=== PATIENT | female | born 1990 | race Caucasian/White ===

== ENCOUNTER 2021-07-05 17:10 | Inpatient (IN) | payer MEDICAID, OTHER ==
[~2021-07-05] VITALS: Ht 175.3 cm; Wt 73.0 kg
[2021-07-05] MEDS ORDERED: SODIUM CHLORIDE 0.9% 3,000 ML IV ONE (18:00)
[2021-07-05] MEDS ORDERED: LACTATED RINGER'S 2,000 ML IV ONE (18:15)
[2021-07-05] MEDS ORDERED: SODIUM CHLORIDE 0.9% 1,000 ML IV ONE (18:15)
[2021-07-05 18:43] LABS: Mean Corpuscular Volume 92.7 fL (80.0-100.0)
[2021-07-05 18:45] LABS: Mean Corpuscular Hemoglobin 25.6 pg (28.0-32.0); Mean Corpuscular Hgb Conc. 27.6 g/dL (32.0-36.0); Red Blood Cells 3.13 10^6/uL (4.0-5.20); Red Cell Distribution Width 19.8 % (11.8-14.3); White Blood Cell 15.3 10^3/uL (4.4-10.8)
[2021-07-05 18:52] LABS: Urine Bacteria FEW /hpf (None Seen); Urine Blood TRACE /uL (Negative); Urine Budding Yeast MODERATE /hpf (None Seen); Urine Hyaline Cast FEW /lpf (0 - 2); Urine Mucus FEW (None Seen); Urine Specific Gravity 1.016 (1.001-1.035); Urine WBC 7 /hpf (0 - 5)
[2021-07-05 18:52] LABS: Basophils % (manual) 0 (0.0-2.0); Blast Cells 0; Eosinophils % (manual) 0 (0-7); Metamyelocytes % 0; Myelocytes % 0; Promyelocytes % 0; Reactive Lymphocytes 0
[2021-07-05 18:58] LABS: Albumin 1.8 g/dL (3.4-5.0); Calcium 8.6 mg/dL (8.5-10.1); Potassium 3.4 mmol/L (3.5-5.1)
[2021-07-05 19:01] LABS: Amphetamine Screen, Urine POSITIVE (NEGATIVE); Barbiturate Scree,Urine NEGATIVE (NEGATIVE); Benzodiazephine Screen, Urine NEGATIVE (NEGATIVE); Cannabinoid Screen, Urine NEGATIVE (NEGATIVE); Cocaine Screen, Urine NEGATIVE (NEGATIVE); Opiate Scree,Urine NEGATIVE (NEGATIVE); Phencyclidine Screen, Urine NEGATIVE (NEGATIVE)
[2021-07-05 19:11] LABS: BUN/Creatinine Ratio 8.4; Bilirubin, Total 0.4 mg/dL (0.2-1.0); Total Protein 7.7 g/dL (6.4-8.2)
[2021-07-05] MEDS ORDERED: cefTRIAXone 1GM/50ML D5W 50 ML IV ONE (19:30)
[2021-07-05 19:48] LABS: Band Neutrophils % (manual) 3; Lymphocytes % (manual) 12 (10.0-50.0); Monocytes % (manual) 3 (0-12)
[2021-07-05] MEDS: POTASSIUM CHL 20MEQ/50ML 50 ML IV SCH ×2 (20:30→22:25)
[2021-07-06] MEDS ORDERED: SODIUM BICARBONATE 50ML VIAL 50 ML in SOD CHL 0.45% 1,000 ML IV ONE ×6
[2021-07-06] MEDS ORDERED: DEXTROSE (50%) 50ML SYRG IV PRN
[2021-07-06] MEDS ORDERED: SODIUM BICARBONATE 8.4 % INJ 50ML VIAL IV ONE
[2021-07-06] MEDS ORDERED: SODIUM BICARBONATE 8.4% INJ 50ML SYRINGE ONE (00:12)
[2021-07-06] MEDS ORDERED: InsuLIN REG 1unit/0.01ml Soln (100units/ml) ONE (00:14)
[2021-07-06] MEDS ORDERED: SODIUM BICARBONATE 50ML VIAL 50 ML in SOD CHL 0.45% 1,000 ML IV SCH ×2 (00:15→00:30)
[2021-07-06] MEDS ORDERED: SODIUM BICARBONATE 50ML VIAL 150 ML in SOD CHL 0.45% 1,000 ML IV ONE ×5 (00:30→00:45)
[2021-07-06] MEDS: ACCU-CHEK COMFORT CURVE STRIP VI SCH ×16 (01:11→23:40)
[2021-07-06] MEDS: SOD CHL 0.9%/ KCL 20MEQ 1,000 ML IV SCH ×4 (01:35→19:10)
[2021-07-06] MEDS ORDERED: InsuLIN R (HUMAN) 100 UNITS in SODIUM CHL 0.9% 99 ML IV SCH ×6 (03:15)
[2021-07-06] MEDS: InsuLIN R (HUMAN) 100 UNITS in SODIUM CHL 0.9% 99 ML IV SCH ×9 (03:23→19:09)
[2021-07-06 04:13] LABS: Calcium 7.6 mg/dL (8.5-10.1); Potassium 4.2 mmol/L (3.5-5.1)
[2021-07-06] MEDS ORDERED: NITROGLYCERIN 0.4 MG SL TAB SL PRN (04:15)
[2021-07-06] MEDS ORDERED: ACETAMINOPHEN 325 MG TAB PO PRN (04:15)
[2021-07-06] MEDS ORDERED: DOCUSATE SOD 100 MG CAP PO PRN (04:15)
[2021-07-06] MEDS ORDERED: ONDANSETRON HCL 4 MG/2 ML VIAL IV PRN (04:15)
[2021-07-06] MEDS ORDERED: ALBUMIN 25% 100 ML IV ONE ×2 (04:15→09:00)
[2021-07-06 04:22] LABS: BUN/Creatinine Ratio 9.9
[2021-07-06] MEDS ORDERED: MORPHINE SULFATE INJECTION 2 MG/ML SYRG IV PRN (06:15)
[2021-07-06] MEDS: INSULIN LANTUS (GLARGINE) 1 /0.01ml (100units/ml) SC SCH ×2 (06:50→22:26)
[2021-07-06 08:14] LABS: Hematocrit 20.3 % (36.0-46.0); Mean Corpuscular Hemoglobin 25.5 pg (28.0-32.0); Mean Corpuscular Hgb Conc. 31.6 g/dL (32.0-36.0); Mean Corpuscular Volume 80.8 fL (80.0-100.0); Red Blood Cells 2.51 10^6/uL (4.0-5.20); Red Cell Distribution Width 18.2 % (11.8-14.3); White Blood Cell 13.1 10^3/uL (4.4-10.8)
[2021-07-06 08:30] LABS: Potassium 3.2 mmol/L (3.5-5.1)
[2021-07-06 08:41] LABS: Albumin 1.4 g/dL (3.4-5.0); BUN/Creatinine Ratio 9.2; Bilirubin, Total 0.3 mg/dL (0.2-1.0); Calcium 7.5 mg/dL (8.5-10.1); Total Protein 6.3 g/dL (6.4-8.2)
[2021-07-06 08:47] LABS: Hemoglobin 6.4 g/dL (12.2-16.2)
[2021-07-06 08:48] LABS: Basophils % (manual) 0 (0.0-2.0); Blast Cells 0; Eosinophils % (manual) 0 (0-7); Metamyelocytes % 0; Myelocytes % 0; Promyelocytes % 0; Reactive Lymphocytes 0
[2021-07-06] MEDS: cefTRIAXone 1GM/50ML D5W 50 ML IV SCH (09:00)
[2021-07-06] MEDS ORDERED: POTASSIUM CHL 20 Meq TABLET PO ONE (10:45)
[2021-07-06] MEDS ORDERED: HEPARIN SODIUM (PORCINE) 5000 UNITS/ML 1ML VIAL ONE ×2 (10:47)
[2021-07-06] MEDS: FUROSEMIDE 40 MG/4 ML VIAL IV SCH (11:35)
[2021-07-06] MEDS: ASPirin 81 mg TAB PO SCH (11:36)
[2021-07-06] MEDS: HEPARIN SODIUM (PORCINE) 5000 UNITS/ML 1ML VIAL SC SCH ×2 (11:36→22:26)
[2021-07-06] MEDS: FAMOTIDINE (10MG/ML) 2ML VL IV SCH ×2 (11:36→22:25)
[2021-07-06] MEDS: D5W/SOD CHL 0.45% 1,000 ML IV SCH ×11 (11:37→19:09)
[2021-07-06 12:21] LABS: Band Neutrophils % (manual) 5; Lymphocytes % (manual) 5 (10.0-50.0); Monocytes % (manual) 4 (0-12)
[2021-07-06] MEDS: MORPHINE SULFATE INJECTION 2 MG/ML SYRG IV PRN ×2 (12:31→18:57)
[2021-07-06 12:43] LABS: Calcium 7.5 mg/dL (8.5-10.1)
[2021-07-06 12:45] LABS: BUN/Creatinine Ratio 9.2
[2021-07-06 14:38] LABS: Potassium 2.9 mmol/L (3.5-5.1)
[2021-07-06] MEDS: POTASSIUM CHL 20MEQ/50ML 50 ML IV SCH ×3 (15:07→17:47)
[2021-07-06] MEDS ORDERED: POTASSIUM CHL 20MEQ/50ML 100 ML IV ONE (15:18)
[2021-07-06 16:33] LABS: Eosinophils # (auto) 0 10 ^3/uL (0-0.8); Lymphocytes % (auto) 8.4 % (10.0-50.0); Neutrophils # (auto) 10.1 10 ^3/uL (1.6-8.6); Nucleated Red Blood Cells % 0.1 %; White Blood Cell 12.2 10^3/uL (4.4-10.8)
[2021-07-06 16:34] LABS: Basophils # (auto) 0 10 ^3/uL (0-0.2); Basophils % (auto) 0.3 % (0.0-2.0); Mean Corpuscular Hemoglobin 26.1 pg (28.0-32.0); Mean Corpuscular Hgb Conc. 32.9 g/dL (32.0-36.0); Mean Corpuscular Volume 79.5 fL (80.0-100.0); Monocytes % (auto) 8.1 % (0.0-12.0); Neutrophils % (auto) 83.2 % (37.0-80.0); Red Blood Cells 2.39 10^6/uL (4.0-5.20)
[2021-07-06 16:38] LABS: Hemoglobin 6.2 g/dL (12.2-16.2)
[2021-07-06 17:32] VITALS: BP 96/56
[2021-07-06 17:49] VITALS: BP 112/69
[2021-07-06 21:15] VITALS: BP 108/66
[2021-07-06 21:30] VITALS: BP 111/66
[2021-07-06] MEDS: HYDROcodone-ACET 5/325MG TAB PO PRN (21:43)
[2021-07-06 22:30] VITALS: BP 111/66
[2021-07-06 23:31] LABS: Calcium 7.6 mg/dL (8.5-10.1); Potassium 3.3 mmol/L (3.5-5.1)
[2021-07-06 23:33] LABS: BUN/Creatinine Ratio 9.4
[2021-07-07] VITALS: BP 102/69
[2021-07-07] MEDS: ACCU-CHEK COMFORT CURVE STRIP VI SCH ×12 (01:20→22:32)
[2021-07-07] MEDS: MORPHINE SULFATE INJECTION 2 MG/ML SYRG IV PRN ×6 (02:03→22:20)
[2021-07-07] MEDS: D5W/SOD CHL 0.45% 1,000 ML IV SCH (02:12)
[2021-07-07 02:46] LABS: BUN/Creatinine Ratio 9.7; Calcium 7.8 mg/dL (8.5-10.1); Potassium 3.2 mmol/L (3.5-5.1)
[2021-07-07] MEDS: SOD CHL 0.9%/ KCL 20MEQ 1,000 ML IV SCH ×3 (02:49→20:46)
[2021-07-07 03:37] LABS: Basophils # (auto) 0.1 10 ^3/uL (0-0.2); Eosinophils # (auto) 0 10 ^3/uL (0-0.8); Monocytes # (auto) 0.7 10 ^3/uL (0-1.3); Red Cell Distribution Width 17.6 % (11.8-14.3)
[2021-07-07 03:40] LABS: Basophils % (auto) 0.8 % (0.0-2.0); Eosinophils % (auto) 0.1 % (0.0-7.0); Hemoglobin 9.1 g/dL (12.2-16.2); Lymphocytes % (auto) 10.1 % (10.0-50.0); Mean Corpuscular Hgb Conc. 33.5 g/dL (32.0-36.0); Mean Corpuscular Volume 80.5 fL (80.0-100.0); Monocytes % (auto) 6.4 % (0.0-12.0); Neutrophils # (auto) 8.5 10 ^3/uL (1.6-8.6); Neutrophils % (auto) 82.6 % (37.0-80.0); Red Blood Cells 3.36 10^6/uL (4.0-5.20); White Blood Cell 10.3 10^3/uL (4.4-10.8)
[2021-07-07] MEDS: InsuLIN R (HUMAN) 100 UNITS in SODIUM CHL 0.9% 99 ML IV SCH (07:35)
[2021-07-07] MEDS: INSULIN LANTUS (GLARGINE) 1 /0.01ml (100units/ml) SC SCH ×2 (08:09→22:33)
[2021-07-07] MEDS: FUROSEMIDE 40 MG/4 ML VIAL IV SCH (11:04)
[2021-07-07] MEDS: FAMOTIDINE (10MG/ML) 2ML VL IV SCH ×2 (11:04→22:32)
[2021-07-07] MEDS: cefTRIAXone 1GM/50ML D5W 50 ML IV SCH (11:04)
[2021-07-07] MEDS: ASPirin 81 mg TAB PO SCH (11:04)
[2021-07-07] MEDS: HEPARIN SODIUM (PORCINE) 5000 UNITS/ML 1ML VIAL SC SCH ×2 (11:04→22:32)
[2021-07-07 11:11] LABS: Basophils # (auto) 0 10 ^3/uL (0-0.2); Basophils % (auto) 0.2 % (0.0-2.0); Eosinophils # (auto) 0 10 ^3/uL (0-0.8); Eosinophils % (auto) 0.2 % (0.0-7.0); Hemoglobin 9.1 g/dL (12.2-16.2); Lymphocytes # (auto) 0.6 10 ^3/uL (0.4-5.4); Lymphocytes % (auto) 6.2 % (10.0-50.0); Monocytes # (auto) 0.6 10 ^3/uL (0-1.3); Red Cell Distribution Width 17.8 % (11.8-14.3)
[2021-07-07 11:15] LABS: Hematocrit 27.1 % (36.0-46.0); Mean Corpuscular Hemoglobin 26.9 pg (28.0-32.0); Mean Corpuscular Hgb Conc. 33.7 g/dL (32.0-36.0); Mean Corpuscular Volume 79.7 fL (80.0-100.0); Monocytes % (auto) 6.1 % (0.0-12.0); Neutrophils # (auto) 8.2 10 ^3/uL (1.6-8.6); Neutrophils % (auto) 87.3 % (37.0-80.0); White Blood Cell 9.4 10^3/uL (4.4-10.8)
[2021-07-07 11:18] LABS: INR 1.03 (0.9-1.15); Partial Thromboplastin Time 26.2 sec (23.6-33.0)
[2021-07-07 11:27] LABS: Albumin 1.7 g/dL (3.4-5.0); BUN/Creatinine Ratio 10.2; Calcium 7.8 mg/dL (8.5-10.1); Potassium 3.2 mmol/L (3.5-5.1)
[2021-07-07 11:30] LABS: Bilirubin, Total 0.3 mg/dL (0.2-1.0); Total Protein 6.2 g/dL (6.4-8.2)
[2021-07-07] MEDS ORDERED: DEXTROSE (50%) 50ML SYRG IV PRN (11:45)
[2021-07-07] MEDS: InsuLIN REG 1unit/0.01ml Soln (100units/ml) SC SCH ×3 (14:05→22:34)
[2021-07-07 16:44] LABS: Calcium 7.8 mg/dL (8.5-10.1)
[2021-07-07 16:46] LABS: BUN/Creatinine Ratio 9.7
[2021-07-07 16:53] LABS: Potassium 2.7 mmol/L (3.5-5.1)
[2021-07-07 17:56] VITALS: BP 101/55
[2021-07-07 18:34] VITALS: BP 101/55
[2021-07-07] MEDS ORDERED: INSLISPI SC (18:48)
[2021-07-07] MEDS ORDERED: TRAZ100T3 PO (18:48)
[2021-07-07] MEDS ORDERED: AMIT25TA12 PO (18:48)
[2021-07-07] MEDS ORDERED: INSLANTI SC (18:48)
[2021-07-07 20:00] VITALS: BP 110/62
[2021-07-07 20:01] LABS: BUN/Creatinine Ratio 9.5; Calcium 7.5 mg/dL (8.5-10.1)
[2021-07-07 20:08] LABS: Potassium 2.7 mmol/L (3.5-5.1)
[2021-07-07] MEDS: POTASSIUM CHL 20MEQ/50ML 50 ML IV SCH ×2 (21:09→22:07)
[2021-07-08] MEDS: ACCU-CHEK COMFORT CURVE STRIP VI SCH ×6 (00:03→20:34)
[2021-07-08] MEDS: InsuLIN REG 1unit/0.01ml Soln (100units/ml) SC SCH ×6 (00:07→20:34)
[2021-07-08 01:45] LABS: BUN/Creatinine Ratio 11.3; Calcium 7.5 mg/dL (8.5-10.1); Potassium 3.4 mmol/L (3.5-5.1)
[2021-07-08] MEDS: POTASSIUM CHL 20MEQ/50ML 50 ML IV SCH (01:50)
[2021-07-08] MEDS: MORPHINE SULFATE INJECTION 2 MG/ML SYRG IV PRN ×5 (03:20→21:33)
[2021-07-08] MEDS: SOD CHL 0.9%/ KCL 20MEQ 1,000 ML IV SCH ×3 (03:35→21:34)
[2021-07-08] MEDS: INSULIN LANTUS (GLARGINE) 1 /0.01ml (100units/ml) SC SCH ×2 (06:53→21:32)
[2021-07-08 07:22] LABS: Basophils # (auto) 0.1 10 ^3/uL (0-0.2); Basophils % (auto) 0.5 % (0.0-2.0); Eosinophils # (auto) 0 10 ^3/uL (0-0.8); Hemoglobin 11.1 g/dL (12.2-16.2); White Blood Cell 11.4 10^3/uL (4.4-10.8)
[2021-07-08 07:25] LABS: Eosinophils % (auto) 0.3 % (0.0-7.0); Hematocrit 32.7 % (36.0-46.0); Lymphocytes # (auto) 1.1 10 ^3/uL (0.4-5.4); Lymphocytes % (auto) 9.3 % (10.0-50.0); Mean Corpuscular Hemoglobin 26.9 pg (28.0-32.0); Mean Corpuscular Hgb Conc. 33.8 g/dL (32.0-36.0); Mean Corpuscular Volume 79.4 fL (80.0-100.0); Monocytes # (auto) 0.6 10 ^3/uL (0-1.3); Monocytes % (auto) 5.1 % (0.0-12.0); Neutrophils # (auto) 9.7 10 ^3/uL (1.6-8.6); Neutrophils % (auto) 84.8 % (37.0-80.0); Nucleated Red Blood Cells % 0.1 %; Red Blood Cells 4.12 10^6/uL (4.0-5.20)
[2021-07-08 07:38] LABS: Potassium 3.5 mmol/L (3.5-5.1)
[2021-07-08 07:45] LABS: BUN/Creatinine Ratio 12.3
[2021-07-08] MEDS: ASPirin 81 mg TAB PO SCH (08:50)
[2021-07-08] MEDS: FUROSEMIDE 40 MG/4 ML VIAL IV SCH (08:51)
[2021-07-08] MEDS: FAMOTIDINE (10MG/ML) 2ML VL IV SCH ×2 (08:51→21:31)
[2021-07-08 09:00] VITALS: BP 112/82
[2021-07-08] MEDS: HEPARIN SODIUM (PORCINE) 5000 UNITS/ML 1ML VIAL SC SCH ×2 (09:02→21:31)
[2021-07-08] MEDS: cefTRIAXone 1GM/50ML D5W 50 ML IV SCH (09:04)
[2021-07-08 11:03] LABS: BUN/Creatinine Ratio 11.5; Calcium 7.9 mg/dL (8.5-10.1); Potassium 3.4 mmol/L (3.5-5.1)
[2021-07-08] MEDS: HYDROcodone-ACET 5/325MG TAB PO PRN (11:56)
[2021-07-08] MEDS ORDERED: VANCOMYCIN PER PHARMACY 0 MG IV SCH (12:30)
[2021-07-08 13:00] VITALS: BP 112/83
[2021-07-08] MEDS: VANCOMYCIN 1GM/250ML 250 ML IV SCH (14:33)
[2021-07-08 14:54] LABS: BUN/Creatinine Ratio 13.5; Calcium 7.9 mg/dL (8.5-10.1)
[2021-07-08 17:00] VITALS: BP 105/71
[2021-07-08 20:00] VITALS: BP 104/70
[2021-07-08 20:20] LABS: BUN/Creatinine Ratio 14.2; Calcium 7.7 mg/dL (8.5-10.1); Potassium 3.2 mmol/L (3.5-5.1)
[2021-07-08] MEDS: FOLIC ACID 1 MG TAB PO SCH (21:38)
[2021-07-08] MEDS: THIAMINE HCL 100 MG TAB PO SCH (21:39)
[2021-07-08 22:13] VITALS: BP 104/70
[2021-07-08 23:00] LABS: BUN/Creatinine Ratio 14.7; Calcium 7.8 mg/dL (8.5-10.1); Potassium 3.5 mmol/L (3.5-5.1)
[2021-07-09] MEDS: ACCU-CHEK COMFORT CURVE STRIP VI SCH ×7 (00:39→23:49)
[2021-07-09] MEDS: VANCOMYCIN 1GM/250ML 250 ML IV SCH ×2 (02:04→14:27)
[2021-07-09] MEDS: MORPHINE SULFATE INJECTION 2 MG/ML SYRG IV PRN ×4 (02:05→20:38)
[2021-07-09 03:00] LABS: BUN/Creatinine Ratio 17.2; Calcium 7.8 mg/dL (8.5-10.1); Potassium 3.6 mmol/L (3.5-5.1)
[2021-07-09] MEDS: InsuLIN REG 1unit/0.01ml Soln (100units/ml) SC SCH ×6 (04:00→19:51)
[2021-07-09 05:15] VITALS: BP 100/63
[2021-07-09] MEDS: SOD CHL 0.9%/ KCL 20MEQ 1,000 ML IV SCH ×3 (06:39→17:39)
[2021-07-09] MEDS: INSULIN LANTUS (GLARGINE) 1 /0.01ml (100units/ml) SC SCH ×2 (06:43→21:08)
[2021-07-09] MEDS ORDERED: fentaNYL CITRATE 100 MCG/2 ML VL IV ONE (08:30)
[2021-07-09] MEDS ORDERED: MIDAZOLAM HCL 2MG/2ML 2ml VIAL (1mg/ml) IV ONE (08:30)
[2021-07-09] MEDS ORDERED: LIDOCAINE 2%HCL (LOCAL ANESTH.) INJ 20ML MDV ONE (08:59)
[2021-07-09 09:00] VITALS: BP 106/65
[2021-07-09 09:12] LABS: Basophils # (auto) 0 10 ^3/uL (0-0.2); Basophils % (auto) 0.5 % (0.0-2.0); Eosinophils # (auto) 0 10 ^3/uL (0-0.8); Lymphocytes # (auto) 1.1 10 ^3/uL (0.4-5.4); Lymphocytes % (auto) 16.2 % (10.0-50.0); Mean Corpuscular Volume 79.8 fL (80.0-100.0); Monocytes # (auto) 0.4 10 ^3/uL (0-1.3); Neutrophils # (auto) 5.5 10 ^3/uL (1.6-8.6)
[2021-07-09 09:17] LABS: Eosinophils % (auto) 0.6 % (0.0-7.0); Hematocrit 27.9 % (36.0-46.0); Hemoglobin 9.4 g/dL (12.2-16.2); Mean Corpuscular Hemoglobin 26.9 pg (28.0-32.0); Mean Corpuscular Hgb Conc. 33.7 g/dL (32.0-36.0); Monocytes % (auto) 5.3 % (0.0-12.0); Neutrophils % (auto) 77.4 % (37.0-80.0); Nucleated Red Blood Cells % 0.2 %; Red Blood Cells 3.49 10^6/uL (4.0-5.20); Red Cell Distribution Width 18.1 % (11.8-14.3); White Blood Cell 7.1 10^3/uL (4.4-10.8)
[2021-07-09] MEDS: THIAMINE HCL 100 MG TAB PO SCH (09:17)
[2021-07-09] MEDS: cefTRIAXone 1GM/50ML D5W 50 ML IV SCH (09:17)
[2021-07-09] MEDS: FOLIC ACID 1 MG TAB PO SCH (09:18)
[2021-07-09] MEDS: ASPirin 81 mg TAB PO SCH (09:18)
[2021-07-09] MEDS: HEPARIN SODIUM (PORCINE) 5000 UNITS/ML 1ML VIAL SC SCH ×2 (09:18→21:11)
[2021-07-09] MEDS: FAMOTIDINE (10MG/ML) 2ML VL IV SCH ×2 (09:18→21:07)
[2021-07-09 09:29] LABS: BUN/Creatinine Ratio 17.8; Calcium 7.7 mg/dL (8.5-10.1); Potassium 3.7 mmol/L (3.5-5.1)
[2021-07-09 09:33] LABS: % Iron Saturation 11.3 % (15-50)
[2021-07-09 10:58] LABS: Folate (Folic Acid) 7.13 ng/mL (5.38-24)
[2021-07-09 12:45] VITALS: BP 112/77
[2021-07-09 16:18] LABS: BUN/Creatinine Ratio 17.7; Calcium 8.3 mg/dL (8.5-10.1); Potassium 3.6 mmol/L (3.5-5.1)
[2021-07-09 17:00] VITALS: BP 133/92
[2021-07-09] MEDS: HYDROcodone-ACET 5/325MG TAB PO PRN ×2 (17:59→22:30)
[2021-07-09 20:18] LABS: BUN/Creatinine Ratio 12.7; Calcium 8.2 mg/dL (8.5-10.1); Potassium 3.6 mmol/L (3.5-5.1)
[2021-07-09 21:30] VITALS: BP 101/68
[2021-07-09 23:47] LABS: Calcium 7.6 mg/dL (8.5-10.1); Potassium 3.7 mmol/L (3.5-5.1)
[2021-07-09 23:50] LABS: BUN/Creatinine Ratio 17.6
[2021-07-10] MEDS: InsuLIN REG 1unit/0.01ml Soln (100units/ml) SC SCH ×7 (00:09→23:49)
[2021-07-10] MEDS: MORPHINE SULFATE INJECTION 2 MG/ML SYRG IV PRN ×4 (01:00→20:04)
[2021-07-10] MEDS: VANCOMYCIN 1GM/250ML 250 ML IV SCH ×2 (01:48→14:00)
[2021-07-10] MEDS: ACCU-CHEK COMFORT CURVE STRIP VI SCH ×6 (04:17→23:38)
[2021-07-10] MEDS: SOD CHL 0.9%/ KCL 20MEQ 1,000 ML IV SCH (04:59)
[2021-07-10 05:00] VITALS: BP 90/60
[2021-07-10 05:29] LABS: Calcium 8.2 mg/dL (8.5-10.1); Potassium 3.7 mmol/L (3.5-5.1)
[2021-07-10] MEDS: INSULIN LANTUS (GLARGINE) 1 /0.01ml (100units/ml) SC SCH ×2 (06:45→21:44)
[2021-07-10] MEDS: FAMOTIDINE (10MG/ML) 2ML VL IV SCH ×2 (08:38→21:40)
[2021-07-10] MEDS: cefTRIAXone 1GM/50ML D5W 50 ML IV SCH (08:38)
[2021-07-10] MEDS: THIAMINE HCL 100 MG TAB PO SCH (08:38)
[2021-07-10] MEDS: ASPirin 81 mg TAB PO SCH (08:38)
[2021-07-10] MEDS: FOLIC ACID 1 MG TAB PO SCH (08:38)
[2021-07-10] MEDS: HEPARIN SODIUM (PORCINE) 5000 UNITS/ML 1ML VIAL SC SCH ×2 (08:45→21:43)
[2021-07-10 08:49] VITALS: BP 103/70
[2021-07-10] MEDS: HYDROcodone-ACET 5/325MG TAB PO PRN ×2 (11:00→16:28)
[2021-07-10 13:00] VITALS: BP 109/65
[2021-07-10 17:27] VITALS: BP 111/71
[2021-07-10 22:00] VITALS: BP 107/77
[2021-07-11] MEDS: VANCOMYCIN 1GM/250ML 250 ML IV SCH ×2 (01:59→13:40)
[2021-07-11] MEDS: MORPHINE SULFATE INJECTION 2 MG/ML SYRG IV PRN ×4 (01:59→20:20)
[2021-07-11] MEDS: ACCU-CHEK COMFORT CURVE STRIP VI SCH ×6 (04:03→23:08)
[2021-07-11] MEDS: InsuLIN REG 1unit/0.01ml Soln (100units/ml) SC SCH ×6 (04:09→23:08)
[2021-07-11 05:00] VITALS: BP 113/69
[2021-07-11 06:22] LABS: Basophils # (auto) 0 10 ^3/uL (0-0.2); Basophils % (auto) 0.6 % (0.0-2.0); Eosinophils # (auto) 0.1 10 ^3/uL (0-0.8); Hematocrit 26.1 % (36.0-46.0); Lymphocytes # (auto) 1.3 10 ^3/uL (0.4-5.4); Monocytes # (auto) 0.5 10 ^3/uL (0-1.3); Neutrophils # (auto) 5.3 10 ^3/uL (1.6-8.6); Red Blood Cells 3.22 10^6/uL (4.0-5.20); White Blood Cell 7.3 10^3/uL (4.4-10.8)
[2021-07-11 06:27] LABS: Eosinophils % (auto) 1.6 % (0.0-7.0); Hemoglobin 8.4 g/dL (12.2-16.2); Lymphocytes % (auto) 17.4 % (10.0-50.0); Mean Corpuscular Hemoglobin 26.2 pg (28.0-32.0); Mean Corpuscular Hgb Conc. 32.3 g/dL (32.0-36.0); Mean Corpuscular Volume 81.2 fL (80.0-100.0); Monocytes % (auto) 7.1 % (0.0-12.0); Neutrophils % (auto) 73.3 % (37.0-80.0); Red Cell Distribution Width 18.5 % (11.8-14.3)
[2021-07-11] MEDS: INSULIN LANTUS (GLARGINE) 1 /0.01ml (100units/ml) SC SCH ×2 (06:45→23:07)
[2021-07-11 07:06] LABS: Potassium 3.8 mmol/L (3.5-5.1)
[2021-07-11 07:13] LABS: BUN/Creatinine Ratio 20.8; Calcium 8.1 mg/dL (8.5-10.1)
[2021-07-11] MEDS: FAMOTIDINE (10MG/ML) 2ML VL IV SCH ×2 (08:32→23:06)
[2021-07-11] MEDS: THIAMINE HCL 100 MG TAB PO SCH (08:32)
[2021-07-11] MEDS: HEPARIN SODIUM (PORCINE) 5000 UNITS/ML 1ML VIAL SC SCH ×2 (08:32→23:07)
[2021-07-11] MEDS: ASPirin 81 mg TAB PO SCH (08:32)
[2021-07-11] MEDS: FOLIC ACID 1 MG TAB PO SCH (08:32)
[2021-07-11] MEDS: cefTRIAXone 1GM/50ML D5W 50 ML IV SCH (08:32)
[2021-07-11 08:36] VITALS: BP 116/72
[2021-07-11] MEDS: HYDROcodone-ACET 5/325MG TAB PO PRN ×2 (10:03→16:37)
[2021-07-11 17:00] VITALS: BP 113/66
[2021-07-11 22:00] VITALS: BP 106/64
[2021-07-12] MEDS: MORPHINE SULFATE INJECTION 2 MG/ML SYRG IV PRN ×6 (01:05→22:32)
[2021-07-12] MEDS: VANCOMYCIN 1GM/250ML 250 ML IV SCH ×2 (02:07→13:39)
[2021-07-12 05:00] VITALS: BP 127/80
[2021-07-12] MEDS: ACCU-CHEK COMFORT CURVE STRIP VI SCH ×6 (05:00→23:50)
[2021-07-12] MEDS: InsuLIN REG 1unit/0.01ml Soln (100units/ml) SC SCH ×6 (05:03→23:52)
[2021-07-12 05:52] LABS: Eosinophils # (auto) 0.1 10 ^3/uL (0-0.8); Lymphocytes # (auto) 1.2 10 ^3/uL (0.4-5.4); Monocytes # (auto) 0.5 10 ^3/uL (0-1.3); Red Blood Cells 3.15 10^6/uL (4.0-5.20)
[2021-07-12 05:56] LABS: Basophils # (auto) 0 10 ^3/uL (0-0.2); Basophils % (auto) 0.3 % (0.0-2.0); Eosinophils % (auto) 1.6 % (0.0-7.0); Hematocrit 25.4 % (36.0-46.0); Hemoglobin 8.3 g/dL (12.2-16.2); Lymphocytes % (auto) 19.3 % (10.0-50.0); Mean Corpuscular Hemoglobin 26.4 pg (28.0-32.0); Mean Corpuscular Hgb Conc. 32.7 g/dL (32.0-36.0); Mean Corpuscular Volume 80.6 fL (80.0-100.0); Monocytes % (auto) 8.5 % (0.0-12.0); Neutrophils # (auto) 4.3 10 ^3/uL (1.6-8.6); Neutrophils % (auto) 70.3 % (37.0-80.0); Nucleated Red Blood Cells % 0.1 %; White Blood Cell 6.2 10^3/uL (4.4-10.8)
[2021-07-12 06:08] LABS: BUN/Creatinine Ratio 17.7; Calcium 8.4 mg/dL (8.5-10.1); Potassium 4.1 mmol/L (3.5-5.1)
[2021-07-12] MEDS: INSULIN LANTUS (GLARGINE) 1 /0.01ml (100units/ml) SC SCH ×2 (06:57→22:48)
[2021-07-12 08:00] VITALS: BP 112/82
[2021-07-12 09:00] VITALS: BP 127/80
[2021-07-12] MEDS: cefTRIAXone 1GM/50ML D5W 50 ML IV SCH (09:03)
[2021-07-12] MEDS: THIAMINE HCL 100 MG TAB PO SCH (10:00)
[2021-07-12] MEDS: HEPARIN SODIUM (PORCINE) 5000 UNITS/ML 1ML VIAL SC SCH ×2 (10:00→22:34)
[2021-07-12] MEDS: FAMOTIDINE (10MG/ML) 2ML VL IV SCH ×2 (10:33→22:32)
[2021-07-12] MEDS: FOLIC ACID 1 MG TAB PO SCH (10:34)
[2021-07-12] MEDS: ASPirin 81 mg TAB PO SCH (10:34)
[2021-07-12 13:00] VITALS: BP 116/73
[2021-07-12 17:00] VITALS: BP 114/75
[2021-07-12] MEDS: HYDROcodone-ACET 5/325MG TAB PO PRN ×2 (18:57→23:50)
[2021-07-12 22:00] VITALS: BP 110/70
[2021-07-13] MEDS: VANCOMYCIN 1GM/250ML 250 ML IV SCH ×2 (02:01→13:59)
[2021-07-13] MEDS: MORPHINE SULFATE INJECTION 2 MG/ML SYRG IV PRN ×4 (03:09→20:07)
[2021-07-13] MEDS: InsuLIN REG 1unit/0.01ml Soln (100units/ml) SC SCH ×5 (03:23→20:19)
[2021-07-13] MEDS: ACCU-CHEK COMFORT CURVE STRIP VI SCH ×6 (03:24→20:15)
[2021-07-13] MEDS: HYDROcodone-ACET 5/325MG TAB PO PRN (04:46)
[2021-07-13 05:00] VITALS: BP 105/62
[2021-07-13 05:54] LABS: Basophils # (auto) 0 10 ^3/uL (0-0.2); Eosinophils # (auto) 0.2 10 ^3/uL (0-0.8); Hemoglobin 8.3 g/dL (12.2-16.2); Monocytes # (auto) 0.6 10 ^3/uL (0-1.3); Neutrophils # (auto) 3.3 10 ^3/uL (1.6-8.6); Nucleated Red Blood Cells % 0.1 %
[2021-07-13 05:57] LABS: Basophils % (auto) 0.6 % (0.0-2.0); Eosinophils % (auto) 2.7 % (0.0-7.0); Hematocrit 25.1 % (36.0-46.0); Lymphocytes # (auto) 1.4 10 ^3/uL (0.4-5.4); Lymphocytes % (auto) 26.4 % (10.0-50.0); Mean Corpuscular Hemoglobin 26.5 pg (28.0-32.0); Mean Corpuscular Volume 80.4 fL (80.0-100.0); Monocytes % (auto) 10.1 % (0.0-12.0); Neutrophils % (auto) 60.2 % (37.0-80.0); Red Blood Cells 3.12 10^6/uL (4.0-5.20); Red Cell Distribution Width 17.9 % (11.8-14.3); White Blood Cell 5.5 10^3/uL (4.4-10.8)
[2021-07-13 06:03] LABS: BUN/Creatinine Ratio 21.9; Calcium 8.8 mg/dL (8.5-10.1); Potassium 3.9 mmol/L (3.5-5.1)
[2021-07-13] MEDS: INSULIN LANTUS (GLARGINE) 1 /0.01ml (100units/ml) SC SCH ×2 (06:35→22:20)
[2021-07-13 09:00] VITALS: BP 104/62
[2021-07-13] MEDS ORDERED: HEPARIN SODIUM (PORCINE) 5000 UNITS/ML 1ML VIAL ONE (09:09)
[2021-07-13] MEDS: cefTRIAXone 1GM/50ML D5W 50 ML IV SCH (09:34)
[2021-07-13] MEDS: FAMOTIDINE (10MG/ML) 2ML VL IV SCH ×2 (09:37→22:18)
[2021-07-13] MEDS: FOLIC ACID 1 MG TAB PO SCH (09:38)
[2021-07-13] MEDS: ASPirin 81 mg TAB PO SCH (09:38)
[2021-07-13] MEDS: HEPARIN SODIUM (PORCINE) 5000 UNITS/ML 1ML VIAL SC SCH ×2 (09:42→22:19)
[2021-07-13] MEDS: THIAMINE HCL 100 MG TAB PO SCH (10:11)
[2021-07-13 13:00] VITALS: BP 102/71
[2021-07-13 16:50] VITALS: BP 105/63
[2021-07-13 22:00] VITALS: BP 109/66
[2021-07-14] MEDS: MORPHINE SULFATE INJECTION 2 MG/ML SYRG IV PRN ×5 (00:12→20:42)
[2021-07-14] MEDS: ACCU-CHEK COMFORT CURVE STRIP VI SCH ×6 (00:12→20:00)
[2021-07-14] MEDS: InsuLIN REG 1unit/0.01ml Soln (100units/ml) SC SCH ×6 (00:18→20:00)
[2021-07-14] MEDS: VANCOMYCIN 1GM/250ML 250 ML IV SCH (01:58)
[2021-07-14 04:56] VITALS: BP 107/70
[2021-07-14 05:23] LABS: Potassium 4.2 mmol/L (3.5-5.1)
[2021-07-14 05:26] LABS: Basophils # (auto) 0 10 ^3/uL (0-0.2); Basophils % (auto) 0.7 % (0.0-2.0); Eosinophils # (auto) 0.2 10 ^3/uL (0-0.8); Lymphocytes # (auto) 1.7 10 ^3/uL (0.4-5.4)
[2021-07-14 05:28] LABS: Eosinophils % (auto) 2.9 % (0.0-7.0); Hematocrit 26.9 % (36.0-46.0); Hemoglobin 8.8 g/dL (12.2-16.2); Mean Corpuscular Hemoglobin 26.6 pg (28.0-32.0); Mean Corpuscular Hgb Conc. 32.8 g/dL (32.0-36.0); Mean Corpuscular Volume 81.2 fL (80.0-100.0); Monocytes # (auto) 0.7 10 ^3/uL (0-1.3); Monocytes % (auto) 11.5 % (0.0-12.0); Neutrophils # (auto) 3.5 10 ^3/uL (1.6-8.6); Neutrophils % (auto) 56.9 % (37.0-80.0); Nucleated Red Blood Cells % 0.2 %; Red Blood Cells 3.31 10^6/uL (4.0-5.20); White Blood Cell 6.2 10^3/uL (4.4-10.8)
[2021-07-14 05:30] LABS: BUN/Creatinine Ratio 21.9; Calcium 8.7 mg/dL (8.5-10.1)
[2021-07-14] MEDS: INSULIN LANTUS (GLARGINE) 1 /0.01ml (100units/ml) SC SCH ×2 (06:47→22:03)
[2021-07-14 09:00] VITALS: BP 108/70
[2021-07-14] MEDS: ASPirin 81 mg TAB PO SCH (09:33)
[2021-07-14] MEDS: FOLIC ACID 1 MG TAB PO SCH (09:33)
[2021-07-14] MEDS: HEPARIN SODIUM (PORCINE) 5000 UNITS/ML 1ML VIAL SC SCH ×2 (09:36→22:02)
[2021-07-14] MEDS: cefTRIAXone 1GM/50ML D5W 50 ML IV SCH (09:37)
[2021-07-14] MEDS: THIAMINE HCL 100 MG TAB PO SCH (09:39)
[2021-07-14] MEDS: FAMOTIDINE (10MG/ML) 2ML VL IV SCH ×2 (09:40→21:58)
[2021-07-14 13:00] VITALS: BP 121/74
[2021-07-14 17:00] VITALS: BP 112/72
[2021-07-14 20:00] VITALS: BP 107/73
[2021-07-15] MEDS: InsuLIN REG 1unit/0.01ml Soln (100units/ml) SC SCH ×4 (00:13→12:13)
[2021-07-15] MEDS: ACCU-CHEK COMFORT CURVE STRIP VI SCH ×4 (00:14→12:13)
[2021-07-15] MEDS: MORPHINE SULFATE INJECTION 2 MG/ML SYRG IV PRN ×3 (00:47→09:34)
[2021-07-15 06:49] LABS: Basophils # (auto) 0.1 10 ^3/uL (0-0.2); Eosinophils # (auto) 0.2 10 ^3/uL (0-0.8); Hemoglobin 8.6 g/dL (12.2-16.2); Lymphocytes # (auto) 1.4 10 ^3/uL (0.4-5.4); Neutrophils # (auto) 3.2 10 ^3/uL (1.6-8.6); Nucleated Red Blood Cells % 0.1 %; White Blood Cell 5.3 10^3/uL (4.4-10.8)
[2021-07-15 06:52] LABS: Hematocrit 26.3 % (36.0-46.0); Lymphocytes % (auto) 27.1 % (10.0-50.0); Mean Corpuscular Hemoglobin 26.3 pg (28.0-32.0); Mean Corpuscular Hgb Conc. 32.6 g/dL (32.0-36.0); Mean Corpuscular Volume 80.8 fL (80.0-100.0); Monocytes # (auto) 0.4 10 ^3/uL (0-1.3); Monocytes % (auto) 7.8 % (0.0-12.0); Neutrophils % (auto) 61.1 % (37.0-80.0); Red Blood Cells 3.26 10^6/uL (4.0-5.20)
[2021-07-15 07:11] LABS: Potassium 4.1 mmol/L (3.5-5.1)
[2021-07-15] MEDS: INSULIN LANTUS (GLARGINE) 1 /0.01ml (100units/ml) SC SCH (07:18)
[2021-07-15 09:00] VITALS: BP 101/60
[2021-07-15] MEDS: FOLIC ACID 1 MG TAB PO SCH (09:35)
[2021-07-15] MEDS: ASPirin 81 mg TAB PO SCH (09:35)
[2021-07-15] MEDS: THIAMINE HCL 100 MG TAB PO SCH (09:35)
[2021-07-15] MEDS: FAMOTIDINE (10MG/ML) 2ML VL IV SCH (09:35)
[2021-07-15] MEDS: HEPARIN SODIUM (PORCINE) 5000 UNITS/ML 1ML VIAL SC SCH (09:51)
[2021-07-15 10:20] VITALS: BP 101/60
[2021-07-15 13:00] VITALS: BP 115/76
== END 2021-07-15 16:11 | disposition home or self-care (01) | DRG 720 ==
LOC: ER 17:10 → EDBD 17:10 → OVERFLOW 07-06 04:03 → TELE-CENTR 07-07 17:20
PROVIDERS: ADMIT Nurse Practitioner Family; ATTEND Internal Medicine Pulmonary Disease
PROC: 30233N1 Transfusion of Nonautologous Red Blood Cells into Peripheral Vein, Percutaneous Approach (ICD-10-PCS; 2021-07-06)
PROC: 0W993ZZ Drainage of Right Pleural Cavity, Percutaneous Approach (ICD-10-PCS; 2021-07-07)
PROC: 0W9930Z Drainage of Right Pleural Cavity with Drainage Device, Percutaneous Approach (ICD-10-PCS; principal; 2021-07-09)
DX: A41.9 Sepsis, unspecified organism (principal); E11.10 Type 2 diabetes mellitus with ketoacidosis without coma; J18.9 Pneumonia, unspecified organism; E46 Unspecified protein-calorie malnutrition; J90 Pleural effusion, not elsewhere classified; D62 Acute posthemorrhagic anemia; E88.09 Other disorders of plasma-protein metabolism, not elsewhere classified; D63.8 Anemia in other chronic diseases classified elsewhere; N39.0 Urinary tract infection, site not specified; D75.839 Thrombocytosis, unspecified; E87.6 Hypokalemia; Z20.822 Contact with and (suspected) exposure to COVID-19; F17.210 Nicotine dependence, cigarettes, uncomplicated; I10 Essential (primary) hypertension; F15.10 Other stimulant abuse, uncomplicated; F41.9 Anxiety disorder, unspecified; Z68.23 Body mass index [BMI] 23.0-23.9, adult
CPT/HCPCS: 10005; 32555; 36415; 36430; 36600; 71045; 71250; 76775; 76942; 77012; 80048; 80053; 80202; 80307; 81001; 81025; 82010; 82607; 82746; 82805; 82962; 83036; 83540; 83550; 83615; 84484; 84702; 85007; 85025; 85027; 85610; 85730; 86635; 86703; 86850; 86900; 86901; 86920; 87040; 87070; 87077; 87081; 87086; 87088; 87186; 87205; 87426; 93005; 96361; 96365; 99291; A4223; C1729; G0378; J0696; J1815; J2250; J2405; J3490; P9047